=== PATIENT | male | born 1955 | race Caucasian/White ===

== ENCOUNTER 2021-04-04 13:08 | Outpatient (CLI) | payer OTHER ==
[~2021-04-04 13:08] MED LIST: CIPRO500 MG PO; FLAGYL500MG PO; MOTRIN800 MG PO
[2021-05-08] MEDS ORDERED: VASOTEC5 MG PO (12:33)
[2021-05-08] MEDS ORDERED: LOZOL PO (12:33)
[2021-05-08] MEDS ORDERED: SYNTHROID150 MCG PO (12:33)
[2021-05-08] MEDS ORDERED: LOPID PO (12:34)
== END 2021-04-04 13:15 | disposition home or self-care (01) ==
LOC: RAD 13:08 → MAMO-SONO 13:15 → RAD 13:15
PROVIDERS: ATTEND Internal Medicine Cardiovascular Disease
DX: M19.91 Primary osteoarthritis, unspecified site (principal)

== ENCOUNTER 2021-04-06 10:45 | Outpatient (CLI) | payer OTHER | END 2021-04-06 10:46 | disposition home or self-care (01) | LOC: NUCLEAR 10:45 | PROVIDERS: ATTEND Internal Medicine Cardiovascular Disease | DX: I87.2 Venous insufficiency (chronic) (peripheral) (principal) ==

== ENCOUNTER → 2021-05-01 11:53 | Outpatient (CLI) | payer OTHER ==
[~2021-05-01 11:53] MED LIST changes: +LOPID PO; +LOZOL PO; +SYNTHROID150 MCG PO; +VASOTEC5 MG PO
== END | disposition home or self-care (01) ==
LOC: MRI 11:00
PROVIDERS: ATTEND Orthopaedic Surgery
DX: M22.42 Chondromalacia patellae, left knee (principal); M25.562 Pain in left knee; M23.232 Derangement of other medial meniscus due to old tear or injury, left knee
CPT/HCPCS: 73221

== ENCOUNTER 2021-05-03 08:58 | Outpatient (CLI) | payer OTHER ==
[~2021-05-03 08:58] MED LIST changes: -LOPID PO; -LOZOL PO; -SYNTHROID150 MCG PO; -VASOTEC5 MG PO
[2021-05-08] MEDS ORDERED: SYNTHROID150 MCG PO (12:33)
[2021-05-08] MEDS ORDERED: VASOTEC5 MG PO (12:33)
[2021-05-08] MEDS ORDERED: LOZOL PO (12:33)
[2021-05-08] MEDS ORDERED: LOPID PO (12:34)
== END 2021-05-03 09:04 | disposition home or self-care (01) ==
LOC: LAB 08:58 → RAD 08:58 → LAB 09:04
PROVIDERS: ATTEND Orthopaedic Surgery
DX: I49.8 Other specified cardiac arrhythmias (principal); I10 Essential (primary) hypertension; Z76.89 Persons encountering health services in other specified circumstances; D64.89 Other specified anemias; E88.89 Other specified metabolic disorders; D68.8 Other specified coagulation defects; N39.0 Urinary tract infection, site not specified; Z22.322 Carrier or suspected carrier of Methicillin resistant Staphylococcus aureus

== ENCOUNTER 2021-05-11 05:38 | Day surgery (SDC) | payer OTHER ==
[~2021-05-11 05:38] MED LIST changes: +LOPID PO; +LOZOL PO; +SYNTHROID150 MCG PO; +VASOTEC5 MG PO
== END 2021-05-11 16:00 | disposition home or self-care (01) ==
LOC: CIR.AMB 05:38
PROVIDERS: ATTEND Orthopaedic Surgery
DX: S83.272A Complex tear of lateral meniscus, current injury, left knee, initial encounter (principal); M12.262 Villonodular synovitis (pigmented), left knee; M22.12 Recurrent subluxation of patella, left knee; M22.42 Chondromalacia patellae, left knee; Z20.822 Contact with and (suspected) exposure to COVID-19

== ENCOUNTER 2022-01-31 08:00 | Outpatient (CLI) | payer OTHER | END 2022-01-31 08:30 | disposition home or self-care (01) | LOC: PPH VACUNA 08:00 | PROVIDERS: ATTEND Emergency Medicine Pediatric Emergency Medicine | DX: Z23 Encounter for immunization (principal) ==

== ENCOUNTER 2022-01-31 10:35 | Outpatient (CLI) | payer OTHER | END 2022-01-31 10:45 | disposition home or self-care (01) | LOC: MRI 10:35 | PROVIDERS: ATTEND Psychiatry & Neurology Clinical Neurophysiology | DX: G30.1 Alzheimer's disease with late onset (principal) | CPT/HCPCS: 70551 ==

== ENCOUNTER 2023-03-20 14:17 | Outpatient (CLI) | payer OTHER | END 2023-03-20 14:24 | disposition home or self-care (01) | LOC: RAD 14:17 | PROVIDERS: ATTEND Orthopaedic Surgery | DX: M25.511 Pain in right shoulder (principal); M25.512 Pain in left shoulder ==

== ENCOUNTER 2023-05-28 08:07 | Outpatient (CLI) | payer OTHER | END 2023-05-28 08:11 | disposition home or self-care (01) | LOC: LAB 08:07 | PROVIDERS: ATTEND Orthopaedic Surgery | DX: D68.8 Other specified coagulation defects (principal); D64.89 Other specified anemias; E88.89 Other specified metabolic disorders; N39.0 Urinary tract infection, site not specified; Z22.322 Carrier or suspected carrier of Methicillin resistant Staphylococcus aureus; Z76.89 Persons encountering health services in other specified circumstances; M25.111 Fistula, right shoulder; M25.112 Fistula, left shoulder; I10 Essential (primary) hypertension; I49.8 Other specified cardiac arrhythmias ==

== ENCOUNTER 2023-06-03 11:59 | Outpatient (CLI) | payer OTHER | END 2023-06-03 12:07 | disposition home or self-care (01) | LOC: TOM 11:59 | PROVIDERS: ATTEND Urology | DX: R31.0 Gross hematuria (principal) ==

== ENCOUNTER 2023-06-11 09:46 | Outpatient (CLI) | payer OTHER | END 2023-06-11 09:48 | disposition home or self-care (01) | LOC: LAB 09:46 | PROVIDERS: ATTEND Orthopaedic Surgery | DX: D68.9 Coagulation defect, unspecified (principal) ==

== ENCOUNTER 2023-06-27 10:51 | Outpatient (CLI) | payer OTHER | END 2023-06-27 10:53 | disposition home or self-care (01) | LOC: LAB 10:51 | PROVIDERS: ATTEND Physical Medicine & Rehabilitation | DX: M06.09 Rheumatoid arthritis without rheumatoid factor, multiple sites (principal) ==

== ENCOUNTER 2023-10-08 11:55 | Outpatient (CLI) | payer OTHER | END 2023-10-08 12:02 | disposition home or self-care (01) | LOC: RAD 11:55 | PROVIDERS: ATTEND Orthopaedic Surgery | DX: M75.42 Impingement syndrome of left shoulder (principal) ==

== ENCOUNTER 2023-12-22 09:45 | Outpatient (CLI) | payer OTHER ==
[2023-12-22 10:59] LABS: HEMOGLOBIN 14.5 g/dL (13-16.00); MEAN CELL VOLUME 88.5 fL (80.0-100.00); MEAN CORPUSCULAR HEMOGLOBIN 30.6 pg (27.00-32.0); MEAN CORPUSCULAR HGB CONC 34.6 g/dl (32.0-36.0); PLATELET COUNT 215 K/uL (150-450); RED BLOOD COUNT 4.74 M/uL (4.00-6.00); RED CELL DISTRIBUTION WIDTH 13.4 % (11.5-14.5)
[2023-12-22 11:17] LABS: URINE APPEARANCE Clear; URINE BILIRRUBIN Negative (NEGATIVE); URINE BLOOD Negative; URINE COLOR Yellow; URINE GLUCOSE Negative (NEGATIVE); URINE LEUKOCYTE Negative; URINE NITRATE Negative; URINE PROTEIN Negative (NEGATIVE); URINE UROBILINOGEN 0.2 E.U./dl
[2023-12-22 11:19] LABS: INR 0.99; PARTIAL THROMBOPLASTIN TIME 26.9 SECONDS (22.0-34.0); PROTHROMBIN TIME 10.4 SECONDS (9.0-11.5)
[2023-12-22 11:21] LABS: ALBUMIN 4.2 gm/dL (3.4-5.0); BILIRUBIN TOTAL 0.43 mg/dL (0.3-1.2); CALCIUM 9.7 mg/dL (8.5-10.1); CREATININE SERUM 0.96 mg/dL (0.70-1.30); GFR 77.43; GLOBULINA 3.3 G/DL (2.4-3.5); POTASSIUM 3.85 mEq/L (3.5-5.1); TOTAL PROTEIN 7.5 gm/dL (6.4-8.2)
[2023-12-22 11:28] LABS: URINE BACTERIA 2.5 uL (0.0-1933); URINE EPITHELIAL CELLS 0.2 uL (0.0-38.8); URINE RBC 1.1 uL (0.0-20.8); URINE WBC 0 uL (0.0-23.2)
[2023-12-22 11:36] LABS: COL EPI 141 SECONDS (82-175)
== END 2023-12-22 09:46 | disposition home or self-care (01) ==
LOC: LAB 09:45
PROVIDERS: ATTEND Orthopaedic Surgery
DX: D64.9 Anemia, unspecified (principal); D68.8 Other specified coagulation defects; N39.0 Urinary tract infection, site not specified; E03.9 Hypothyroidism, unspecified; E11.9 Type 2 diabetes mellitus without complications; E55.9 Vitamin D deficiency, unspecified

== ENCOUNTER 2024-01-06 07:15 | Day surgery (SDC) | payer OTHER ==
[2024-01-06] MEDS ORDERED: CEFAZOLIN SODIUM 1,000 MG VIAL ONE (08:34)
[2024-01-06] MEDS ORDERED: LIDOCAINE HCL/EPINEPHRINE 10MG/ML 1% 50ML IJ ONE ×2 (10:02→13:15)
[2024-01-06] MEDS ORDERED: SUGAMMADEX SODIUM 200 MG/2 ML VIAL IV ONE ×2 (12:59→13:15)
[2024-01-06] MEDS ORDERED: CEFAZOLIN SODIUM 1,000 MG VIAL IV ONE (13:15)
[2024-01-06] MEDS ORDERED: hydrALAZINE HCL 20 MG VIAL ONE (14:56)
== END 2024-01-06 17:00 | disposition home or self-care (01) ==
LOC: CIR.AMB 07:15
PROVIDERS: ATTEND Orthopaedic Surgery
DX: M75.121 Complete rotator cuff tear or rupture of right shoulder, not specified as traumatic (principal); M19.011 Primary osteoarthritis, right shoulder; M75.21 Bicipital tendinitis, right shoulder; Z20.822 Contact with and (suspected) exposure to COVID-19

== ENCOUNTER 2024-01-08 11:41 | Emergency (ER) | payer OTHER ==
[~2024-01-08] VITALS: Ht 185.4 cm; Wt 95.3 kg
[2024-01-08 16:23] LABS: HEMATOCRIT 39.1 % (39.0-48.0); HEMOGLOBIN 13.4 g/dL (13-16.00); MEAN CELL VOLUME 89.1 fL (80.0-100.00); MEAN CORPUSCULAR HEMOGLOBIN 30.5 pg (27.00-32.0); MEAN CORPUSCULAR HGB CONC 34.2 g/dl (32.0-36.0); PLATELET COUNT 189 K/uL (150-450); RED BLOOD COUNT 4.38 M/uL (4.00-6.00); RED CELL DISTRIBUTION WIDTH 13.1 % (11.5-14.5)
[2024-01-08 16:54] LABS: ABG PH 7.391 (7.35-7.45); ABG PO2 70.7 mmHg (80-100); ABG pCO2 47.7 mmHg (35-45); BASE EXCESS 2.5 mmol/l; BICARBONATE 28.3 mmol/l (23-25); SaO2 93.9 %; Tco2 29.8 mmol/l
[2024-01-08 16:55] LABS: allen test SATISFACTORY; o2 21 %; puncture site RADIAL LEFT
[2024-01-08 17:01] LABS: D DIMER 0.5 MG/L; PARTIAL THROMBOPLASTIN TIME 27.8 SECONDS (22.0-34.0)
[2024-01-08 17:02] LABS: INR 0.98; PROTHROMBIN TIME 10.3 SECONDS (9.0-11.5)
[2024-01-08 17:35] LABS: CALCIUM 9.3 mg/dL (8.5-10.1); CREATININE SERUM 0.91 mg/dL (0.70-1.30); GFR 82.36; POTASSIUM 4.08 mEq/L (3.5-5.1)
== END 2024-01-08 19:22 | disposition home or self-care (01) ==
LOC: ER 11:42
PROVIDERS: Emergency Medicine
DX: R06.02 Shortness of breath (principal)

== ENCOUNTER 2025-04-12 12:55 | Outpatient (CLI) | payer OTHER | END 2025-04-12 13:02 | disposition home or self-care (01) | LOC: RAD 12:55 | PROVIDERS: ATTEND Urology | DX: M54.50 Low back pain, unspecified (principal); N20.1 Calculus of ureter ==

== ENCOUNTER 2025-04-25 11:50 | Outpatient (CLI) | payer OTHER | END 2025-04-25 11:55 | disposition home or self-care (01) | LOC: MRI 11:50 | PROVIDERS: ATTEND Internal Medicine Cardiovascular Disease | DX: M46.47 Discitis, unspecified, lumbosacral region (principal) | CPT/HCPCS: 72148 ==